=== PATIENT | female | born 1960 | race Caucasian/White ===

== ENCOUNTER 2016-02-19 11:41 | Emergency (ER) | payer OTHER ==
[2016-02-19 12:31] VITALS: BP 142/103; PULSE 86; RESP 16; TEMP 97.9; O2SAT 93
--- NOTE | 2016-02-19 13:15 | UCPHY ---
[id number] and cough. Now chest congestion. Source: Patient Exam Limitations: No limitations - Personal History LMP (Females 10-55): 22-28 Days Ago Tetanus Vaccine Date: < 10 years - Medical/Surgical History Hx Asthma: No Hx Chronic Respiratory Disease: No Hx Diabetes: No Hx Cardiac Disease: No Hx Renal Disease: No Hx Cirrhosis: No Hx Alcoholism: No Hx HIV/AIDS: No Hx Splenectomy or Spleen Trauma: No Other PMH: PCP none. FLu . Tetanus UTD. SUrg NONe - Family History Significant Family History: No pertinent family hx - Social History Smoking Status: Never smoked Time Seen by Provider: 02/19/16 12:34 HPI/ROS: CHIEF COMPLAINT: nasal congestion, sinus headache, cough HISTORY OF PRESENT ILLNESS: 55-year-old female presents complaining of nasal congestion, sinus pressure x2 weeks. Patient reports she has had a cough over the last 5 days, worse at night. Subjective fevers and chills. Nasal discharge. Patient is an bilingual kindergarten teacher. Patient denies any alleviating or worsening factors, she denies neck pain, no chest pain or shortness of breath. Patient does not smoke cigarettes, she is not immunocompromised. She is using a Neti pot, Mucinex and [id number] cough medicine without relief. REVIEW OF SYSTEMS: A comprehensive 10 point review of systems is otherwise negative aside from elements mentioned in the history of present illness. (Anisha Knott) - Physical Exam Exam: General: Alert, nontoxic. ENT: Tympanic membranes clear, bulging, external auditory canal, external ear and surrounding soft tissue including over the mastoid unremarkable. Nasopharynx is injected with swelling, there is rhinorrhea. Oropharynx with erythema, no edema. There is no exudate. No tonsillar hypertrophy. No asymmetry. The uvula is midline. No elevation of tongue. There is no hoarseness. No drooling, patient has good control of their oral secretions. No trismus. No stridor. Maxillary and frontal sinus tenderness to palpation. Cardiac: Regular rate and rhythm. Respiratory: Lungs clear to auscultation bilaterally. Neurological: no meningismus. Skin: No rashes. (Anisha Knott) Constitutional: Initial Vital Signs Temperature (C) 36.6 C 02/19/16 12:24 Heart Rate 86 02/19/16 12:24 Respiratory Rate 16 02/19/16 12:24 Blood Pressure 142/103 H 02/19/16 12:24 O2 Sat (%) 93 02/19/16 12:24 O2 Delivery Mode Room Air Allergies/Adverse Reactions: Sulfa (Sulfonamide Antibiotics) Allergy (Verified 02/19/16 12:31) Home Medications: Medication Instructions Recorded Amoxicillin/Clavulanate Pot 875 mg PO BID #14 tab 02/19/16 [Augmentin 875Mg] Fluticasone Nasal [Flonase Nasal 1 sprays NASAL DAILY #1 mdi 02/19/16 Dorothy (RX)] Guaifenesin/Codeine Phosphate 10 ml PO HS PRN #120 ml 02/19/16 [Guaifenesin-Codeine Liquid] Progesterone Micronized 02/19/16 Medical Decision Making - Diagnostics Imaging: Chest x-ray independently reviewed by me- Impression: 1. No definite pneumonia. 2. Probable linear scarring in the right lung apex. 3. 3-mm pulmonary nodule overlying the right scapula. 4. If there are no prior chest x-rays for comparison, recommend follow-up CT chest in 3 to 6 months for further evaluation. Findings and recommendations discussed with Emergency Department physician, JR Jacob, at 1535 hours today. Final report concurs with initial preliminary interpretation. (Anisha Knott) ED Course/Re-evaluation: 55-year-old nontoxic-appearing female presents URI symptoms x2 weeks. Chest x- ray obtained showing no evidence of pneumonia. Patient is discharged home with a diagnosis of sinusitis, given a prescription for Augmentin, Flonase and guaifenesin with codeine. She is given return precautions for worsening symptoms. 1600-Chest x-ray obtained showing no evidence of pneumonia though it is in all 3 mm right upper lobe nodule that the radiologist is recommending follow-up CT scan in 3-6 months if there is no chest x-ray to compare it to. Patient has been discharged home at the time of this finding and was contacted by the nurse given this information. (Anisha Knott) Urgent Care PA supervision Physician documentation: The patient was evaluated and managed by the physician dental laboratory assistant. My co- signature indicates that I have reviewed this chart and I agree with the findings and plan of care as documented. I am the secondary supervising physician. (Deejay Rondon) Differential Diagnosis: Diagnosis considered but not limited to pneumonia, bronchitis, sinusitis, influenza, viral syndrome (Anisha Knott) Departure - Departure Disposition: Home, Routine, Self-Care Clinical Impression: Acute sinusitis Condition: Good Instructions: Sinusitis (ED) Additional Instructions: Take over the counter Tylenol and ibuprofen as instructed. Rest, drink plenty of fluids. Use a saline nasal rinse, humidifier at night, hot steam showers. Take antibiotics as prescribed, use 1 spray of Flonase in each nostril daily, use your albuterol inhaler 2 puffs every 4-6 hours as needed for coughing, take cough syrup every 6-8 hours as needed, this has codeine in it which causes drowsiness, do not drive, operate any machinery while taking this. Return to the ED for difficulty breathing, chest pain, other concerns. Referrals: NONE *PRIMARY CARE P,. [Primary Care Provider] - As per Instructions Prescriptions: Amoxicillin/Clavulanate Pot [Augmentin 875Mg] 875 mg PO BID #14 tab Fluticasone Nasal [Flonase Nasal Dorothy (RX)] 1 sprays NASAL DAILY #1 mdi Guaifenesin/Codeine Phosphate [Guaifenesin-Codeine Liquid] 10 ml PO HS PRN #120 ml PRN Reason: Cough, Moderate - PQRS PQRS Measurement: na (Anisha Knott)
--- NOTE | 2016-02-19 15:43 | DX ---
Chest, Two Views - February 19, 2016, at 1326 hours History: Cough, sinus congestion. Comparison: None. Findings: Cardiac silhouette is within normal range. No pneumonia, congestive heart failure, pleura l effusion, or pneumothorax. There is a 3-mm pulmonary nodule overlying the right scapula. Linear den sity in the right lung apex. Impression: 1. No definite pneumonia. 2. Probable linear scarring in the right lung apex. 3. 3-mm pulmonary nodule overlying the right scapula. 4. If there are no prior chest x-rays for comparison, recommend follow-up CT chest in 3 to 6 months f or further evaluation. Findings and recommendations discussed with Emergency Department physician, JR Jacob, at 15 35 hours today. Final report concurs with initial preliminary interpretation. A test result has been communicated to a licensed care provider and documented in [employer], 3:45:14 PM , 02/19/2016, [employer] Message ID [id number].
== END 2016-02-19 14:16 | disposition home or self-care (01) ==
LOC: CED 11:41
DX: J01.90 Acute sinusitis, unspecified (principal); R05 Cough; R91.1 Solitary pulmonary nodule; Z88.2 Allergy status to sulfonamides
CPT/HCPCS: 71020-PO; 99214-PO; G0463-PO